=== PATIENT | male | born 1990 | race Two or more races ===

== ENCOUNTER 2017-08-27 07:48 | Emergency (ER) | payer SELFPAY ==
[~2017-08-27] VITALS: Ht 175.3 cm; Wt 60.0 kg
[~2017-08-27 07:48] MED LIST: NAPROSYN500 MG PO; NOHOMEMEDS
[2017-08-27] MEDS ORDERED: KEFLEX500 MG PO (09:27)
[2017-08-27] MEDS ORDERED: BACTRIM,SEPT1 TABLET PO (09:27)
[2017-08-27] MEDS ORDERED: AUGMENTIN875 MG PO (09:33)
[2017-08-27 09:46] VITALS: BP 146/78
== END 2017-08-27 09:49 | disposition home or self-care (01) ==
LOC: EME 07:48
PROC: 0H98XZZ Drainage of Buttock Skin, External Approach (ICD-10-PCS; principal; 2017-08-27)
DX: L02.31 Cutaneous abscess of buttock (principal); F17.200 Nicotine dependence, unspecified, uncomplicated
CPT/HCPCS: 99281; 99284